=== PATIENT | male | born 1990 | race American Indian/Alaskan Native ===

== ENCOUNTER 2018-03-26 19:20 | Emergency (ER) | payer MEDICAID ==
[2018-03-26] MEDS ORDERED: Sodium Chloride 0.9% 10 ML Syringe FLUSH PRN (19:25)
[2018-03-26] MEDS ORDERED: HYDROmorphone 0.5 MG/0.5 ML SYRINGE IVPUSH ONE ×2 (19:27→21:02)
[2018-03-26] MEDS ORDERED: Lactated Ringers 1,000 ML IV SCH (19:30)
[2018-03-26] MEDS ORDERED: Diphtheria,Pertussis(Acell),Tetanus Vaccine 0.5 ML SDV IM ONE (19:36)
--- NOTE | 2018-03-26 19:37 | EDM.PDOC ---
ED HPI GENERAL MEDICAL PROBLEM - General Chief Complaint: Upper Extremity Injury/Pain Stated Complaint: [facility] Time Seen by Provider: 03/26/18 19:25 Source of Information: Reports: Patient, EMS History Limitations: Reports: No Limitations - History of Present Illness INITIAL COMMENTS - FREE TEXT/NARRATIVE: The patient was brought in by [facility]. The patient was working with a horse tonight. The horse was tied down and he went to grab the horses head and when he did that the horse reached over and bit off his right 5th finger. The finger was brought in by EMS. He is left handed. He is not sure if his tetanus is up to date. He had surgery on his knee this past year at [facility]. He has no other injuries. Onset: Sudden Duration: Hour(s): Location: Reports: Upper Extremity, Right (5th finger) Quality: Reports: Sharp Severity: Severe Improves with: Reports: Immobilization Worsens with: Reports: Movement Associated Symptoms: Reports: No Other Symptoms Right Hand Pain Score (Numeric/FACES): 10 - Related Data Allergies Allergy/AdvReac Type Severity Reaction Status Date / Time No Known Allergies Allergy Verified 03/26/18 19:25 Home Meds: Home Meds . [No Known Home Meds] 03/26/18 [History] Review of Systems - Review of Systems Review Of Systems: See Below Constitutional: Reports: No Symptoms Eyes: Reports: No Symptoms Ears: Reports: No Symptoms Nose: Reports: No Symptoms Mouth/Throat: Reports: No Symptoms Respiratory: Reports: No Symptoms Cardiovascular: Reports: No Symptoms GI/Abdominal: Reports: No Symptoms Genitourinary: Reports: No Symptoms Musculoskeletal: Reports: Other (Right 5th finger amputation) ED EXAM, GENERAL - Physical Exam Exam: See Below Exam Limited By: No Limitations General Appearance: Alert, No Apparent Distress Ears: Normal External Exam Nose: Normal Inspection Head: Atraumatic, Normocephalic Neck: Normal Inspection Respiratory/Chest: No Respiratory Distress, Lungs Clear, Normal Breath Sounds Cardiovascular: Regular Rate, Rhythm, No Edema, No Murmur GI/Abdominal: Soft, Non-Tender, No Organomegaly, No Mass Extremities: Other (Amputation of the right 5th finger at the MCP joint) Neurological: Alert, Oriented, No Motor/Sensory Deficits Course - Vital Signs Last Recorded V/S: Last Vital Signs Temp 98.2 F 03/26/18 19:25 Pulse 90 03/26/18 19:25 Resp 16 03/26/18 19:25 BP 186/113 H 03/26/18 19:25 Pulse Ox 100 03/26/18 19:25 - Orders/Labs/Meds Orders: Active Orders 24 hr Category Date Time Status Cardiac Monitoring [RC] . DIRECTED Care 03/26/18 19:33 Active Peripheral IV Care [RC] . DIRECTED Care 03/26/18 19:27 Active Vaccines to be Administered [RC] PER UNIT ROUTINE Care 03/26/18 19:36 Active Hand Comp Min 3V Rt [CR] Stat Exams 03/26/18 19:28 Ordered CBC WITH AUTO DIFF [HEME] Stat Lab 03/26/18 19:33 Ordered COMPREHENSIVE METABOLIC PN,CMP [CHEM] Stat Lab 03/26/18 19:33 Ordered DRUG SCREEN, URINE [URCHEM] Stat Lab 03/26/18 19:33 Ordered ETHANOL BLOOD MEDICAL [CHEM] Stat Lab 03/26/18 19:33 Ordered Lactated Ringers [Ringers, Lactated] 1,000 ml Med 03/26/18 19:30 Active IV ASDIRECTED Sodium Chloride 0.9% [Saline Flush] Med 03/26/18 19:25 Active 10 ml FLUSH ASDIRECTED PRN ceFAZolin [Ancef] 2,000 mg Med 03/26/18 19:27 Active Sodium Chloride 0.9% [Normal Saline] 100 ml IV ONETIME Peripheral IV Insertion Adult [OM.PC] Routine Oth 03/26/18 19:25 Ordered Medication Orders Cefazolin Sodium 2,000 mg/ (Sodium Chloride) 100 mls @ 100 mls/hr IV ONETIME ONE Stop: 03/26/18 20:26 Lactated Ringer's (Ringers, Lactated) 1,000 mls @ 100 mls/hr IV ASDIRECTED MARTHA Sodium Chloride (Saline Flush) 10 ml FLUSH ASDIRECTED PRN PRN Reason: Keep Vein Open Meds: Medications Generic Name Dose Route Start Last Admin Trade Name Freq PRN Reason Stop Dose Admin Cefazolin Sodium 2,000 mg/ 100 mls @ 100 mls/hr 03/26/18 19:27 Sodium Chloride IV 03/26/18 20:26 ONETIME ONE Lactated Ringer's 1,000 mls @ 100 mls/hr 03/26/18 19:30 Ringers, Lactated IV ASDIRECTED MARTHA Sodium Chloride 10 ml 03/26/18 19:25 Saline Flush FLUSH ASDIRECTED PRN Keep Vein Open Discontinued Medications Generic Name Dose Route Start Last Admin Trade Name Freq PRN Reason Stop Dose Admin Diphtheria/Tetanus/Acell Pertussis 0.5 ml 03/26/18 19:36 Adacel IM 03/26/18 19:37 .ONCE ONE Hydromorphone HCl 0.5 mg 03/26/18 19:27 Dilaudid IVPUSH 03/26/18 19:28 ONETIME ONE - Re-Assessments/Exams Free Text/Narrative Re-Assessment/Exam: 03/26/18 19:46 I ordered an IV LR at 100mL/hr, dilaudid 0.5mg IV, tetanus, ancef 2 grams IV, x- ray and labs. I called [facility] because he had his prior surgery done there and they had no one on for hand surgeon. I called Dr Zee and he agreed to the transfer. The x-ray shows a fracture of the the proximal right 5th phalynx. I will send the patient by ambulance. 03/26/18 19:50 The finger is in a plastic bad and placed on ice. 03/26/18 19:50 Departure - Departure Time of Disposition: 19:50 Disposition: DC/Tfer to Acute Hospital 02 Condition: Good Clinical Impression: Amputation of finger of right hand Qualifiers: Encounter type: initial encounter Qualified Code(s): S68.119A - Complete traumatic metacarpophalangeal amputation of unspecified finger, initial encounter - Discharge Information Forms: ED Department Discharge - My Orders Last 24 Hours: My Active Orders 03/26/18 19:25 Sodium Chloride 0.9% [Saline Flush] 10 ml FLUSH ASDIRECTED PRN Peripheral IV Insertion Adult [OM.PC] Routine 03/26/18 19:27 Peripheral IV Care [RC] . DIRECTED ceFAZolin [Ancef] 2,000 mg Sodium Chloride 0.9% [Normal Saline] 100 ml IV ONETIME 03/26/18 19:28 Hand Comp Min 3V Rt [CR] Stat 03/26/18 19:30 Lactated Ringers [Ringers, Lactated] 1,000 ml IV ASDIRECTED 03/26/18 19:33 Cardiac Monitoring [RC] . DIRECTED CBC WITH AUTO DIFF [HEME] Stat COMPREHENSIVE METABOLIC PN,CMP [CHEM] Stat DRUG SCREEN, URINE [URCHEM] Stat ETHANOL BLOOD MEDICAL [CHEM] Stat 03/26/18 19:36 Vaccines to be Administered [RC] PER UNIT ROUTINE - Assessment/Plan Last 24 Hours: My Active Orders 03/26/18 19:25 Sodium Chloride 0.9% [Saline Flush] 10 ml FLUSH ASDIRECTED PRN Peripheral IV Insertion Adult [OM.PC] Routine 03/26/18 19:27 Peripheral IV Care [RC] . DIRECTED ceFAZolin [Ancef] 2,000 mg Sodium Chloride 0.9% [Normal Saline] 100 ml IV ONETIME 03/26/18 19:28 Hand Comp Min 3V Rt [CR] Stat 03/26/18 19:30 Lactated Ringers [Ringers, Lactated] 1,000 ml IV ASDIRECTED 03/26/18 19:33 Cardiac Monitoring [RC] . DIRECTED CBC WITH AUTO DIFF [HEME] Stat COMPREHENSIVE METABOLIC PN,CMP [CHEM] Stat DRUG SCREEN, URINE [URCHEM] Stat ETHANOL BLOOD MEDICAL [CHEM] Stat 03/26/18 19:36 Vaccines to be Administered [RC] PER UNIT ROUTINE
[2018-03-26] MEDS ORDERED: ceFAZolin 2 GM in Premix Bag 1 BAG IV ONE (19:41)
--- NOTE | 2018-03-27 09:18 | CR ---
Right hand: Three views of the right hand were obtained. Amputation noted of the fifth digit at the level of the base of the proximal phalanx. No additional bony abnormality is seen. Impression: 1. Amputation of the fifth digit as noted above. No additional abnormality is appreciated. Diagnostic code #3
== END 2018-03-26 21:35 ==
LOC: JD.ED 19:20
DX: S68.116A Complete traumatic metacarpophalangeal amputation of right little finger, initial encounter (principal); W55.11XA Bitten by horse, initial encounter; Y99.0 Civilian activity done for income or pay
CPT/HCPCS: 36415; 73130; 80053; 85025; 90471; 90715; 96361; 96365; 96375; 96376; 99285; G0480; J0690; J1170; J7050; J7120

== ENCOUNTER 2019-06-02 22:40 | Emergency (ER) | payer MEDICAID ==
[2019-06-02] MEDS ORDERED: Lactated Ringers 1,000 ML IV ONE (22:53)
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
[2019-06-02] MEDS ORDERED: Lactated Ringers 1,000 ML IV SCH (23:00)
[2019-06-03] MEDS ORDERED: fentaNYL 100 MCG/2 ML SDV IVPUSH ONE (01:38)
--- NOTE | 2019-06-03 08:27 | CT ---
CT chest Technique: Multiple axial sections through the chest were obtained. Intravenous contrast was utilized. Reconstructed coronal and sagittal images were obtained. Findings: Air is identified within the brachiocephalic vein compatible with injection which is felt to be incidental. Aorta and pulmonary arteries appear within normal limits. There is some pulsation artifact being noted. No pericardial thickening is seen. No mediastinal hematoma is noted. No axillary adenopathy is seen. Lungs are clear with no acute parenchymal change. No pleural effusions or pneumothorax are seen. No discrete rib fracture is appreciated. Reconstructed sagittal images of the sternum appear intact. Impression: 1. Nothing acute is identified on CT study of the chest. Diagnostic code #1 I agree with preliminary report from [facility], finalized on 06/03/19, 1:[address] abdomen and pelvis Technique: Multiple axial sections were obtained from above the dome of the diaphragm inferiorly through the pubic symphysis. Intravenous contrast was utilized. No oral contrast was given. There is some artifact due to patient's arms not being lifted above the abdomen. Comparison: No prior abdominal imaging. Findings: Liver shows artifact without definite acute abnormality. Spleen appears within normal limits. Adrenal glands appear within normal limits. Small calcified gallstones are seen within the gallbladder. Pancreas appears within normal limits. Kidneys show symmetric contrast enhancement with no hydronephrosis or other abnormality. Aorta shows no aneurysm. No retroperitoneal adenopathy or mesenteric abnormalities are seen. No pelvic mass or adenopathy is seen. No free fluid or inflammatory change is identified. Appendix is seen and is normal in size. Bone window settings were reviewed which show spondylolytic defects at L5-S1 which are felt to be pre-existing. No pelvic fracture or hip fracture is identified. Delayed images show contrast excretion from both kidneys into nondilated ureters with no contrast extravasation. Contrast noted within the bladder on delayed images. Impression: 1. Small calcified gallstones within the gallbladder. 2. 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 3. Nothing acute is identified on CT study of the abdomen and pelvis. Diagnostic code #2 I agree with preliminary report from [facility], finalized on 06/03/19, 1:09 AM Central Time
--- NOTE | 2019-06-03 08:27 | CR ---
Left elbow: Two views of the left elbow were obtained. Comparison: No prior elbow study. IV in place causing some artifact. Soft tissue swelling is noted. No fracture or other bony abnormality is seen. Impression: 1. Soft tissue swelling. No acute bony abnormality is identified on two-view left elbow study. Diagnostic code #2
--- NOTE | 2019-06-03 08:27 | CT ---
Head CT Technique: Multiple axial sections through the brain were obtained. Intravenous contrast was not utilized. Comparison: No prior intracranial imaging is available. Findings: Soft tissue swelling and hematoma is seen within the left posterior frontal, temporal and parietal skull. These radiopacities are projected superficially within the scalp. Ventricles along with basal cisterns and sulci over the convexities appear within normal limits for the patient's age. No abnormal parenchymal densities are seen. No evidence of intracranial hemorrhage. No midline shift or mass effect is seen. Mild areas of mucosal thickening are seen within the right maxillary sinus and within the ethmoid sinuses. No acute calvarial abnormality is seen. Mastoid sinuses are clear. Impression: 1. Scalp injury as noted above. Minimal sinus findings likely pre-existing. 2. No acute intracranial abnormality or skull fracture is seen. Diagnostic code #3 I agree with preliminary report from [facility], finalized on 06/03/19, 12:55 AM Central Time
--- NOTE | 2019-06-03 08:27 | CT ---
CT facial bones Technique: Multiple axial sections through the facial bones were obtained. Reconstructed coronal and sagittal images were obtained. Comparison: No prior study. Findings: Fractures are seen within the nasal bone. Uncertain if these are acute or old. No additional fracture is seen within the facial structures. Right and left globes are symmetric. Mild areas of mucosal thickening seen within the right maxillary and ethmoid sinuses which have the appearance of mild chronic sinusitis. Impression: 1. Nasal bone fractures which are most likely old. Please correlate with patient's symptoms. 2. Minimal sinus findings having the appearance of mild chronic sinusitis. 3. No acute finding is otherwise seen on CT study of the facial bones. Diagnostic code #3 I agree with preliminary report from [facility], finalized on 06/03/19, 1:00 AM Central Time
--- NOTE | 2019-06-03 08:27 | CR ---
Right hand: Two views of the right hand were obtained. Comparison: Prior right hand exam of 03/26/18. 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 Joint spaces are preserved. Cortical thickening seen between the 3rd and 4th proximal metacarpal shafts compatible with old injury. Dystrophic calcification is also noted at the base of the 1st metacarpal also felt compatible with previous injury. No definite acute bony abnormality is appreciated. Impression: 1. Evidence of old injury as noted above. 2. No acute bony abnormality is identified on limited two-view right hand study. Diagnostic code #2
--- NOTE | 2019-06-03 08:27 | CT ---
CT lumbar spine Technique: Multiple axial sections were obtained through the lumbar spine. Reconstructed coronal and sagittal images were also obtained. Findings: Vertebral body heights and disc spaces are maintained. No focal traumatic disc herniation is seen. Spondylolytic defects are noted at L5-S1 which are likely pre-existing. No acute fracture is identified. No abnormal subluxation is seen. No bony central or bony neural foraminal stenosis is seen. Impression: 1. 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 2. No acute abnormality is identified on CT study of the lumbar spine. Diagnostic code #3 I agree with preliminary report from [facility], finalized on 06/03/19, 1:21 AM Central Time
--- NOTE | 2019-06-03 08:27 | CT ---
CT cervical spine Technique: Multiple axial sections were obtained from above C1 inferiorly to the mid T3 level. Reconstructed sagittal and coronal images were reviewed. Comparison: No prior cervical spine imaging. Findings: Vertebral body heights and disc spaces are maintained. Vertebral bodies and posterior arches are intact. No bony central or bony neural foraminal stenosis is seen. No abnormal subluxation is identified on the reconstructed sagittal images. Impression: 1. Nothing acute is seen on CT study of the cervical spine. Diagnostic code #1 I agree with preliminary report from [facility], finalized on 06/03/19, 1:02 AM Central Time
--- NOTE | 2019-06-03 08:27 | CT ---
CT thoracic spine Technique: Multiple axial sections through the thoracic spine were obtained. Reconstructed coronal and sagittal images were obtained. Comparison: No prior thoracic spine imaging is available. Findings: Vertebral body heights and disc spaces are maintained. Vertebral bodies and posterior arches are intact with no fracture being seen. No abnormal subluxation is seen. No bony central or bony neural foraminal stenosis is noted. No paravertebral soft tissue swelling is seen. Minimal scoliosis is noted. Impression: 1. Minimal scoliosis. 2. Nothing acute is appreciated on CT study of the thoracic spine. Diagnostic code #2 I agree with preliminary report from [facility], finalized on 06/03/19, 1:17 AM Central Time
--- NOTE | 2019-06-03 08:27 | CR ---
Right knee: AP and lateral views of the right knee was obtained. Comparison: No prior knee exam. Evidence of previous ACL repair. Screw is noted within the distal medial epicondyle of the femur. This screw shows half of it to be within the soft tissues. Tibial screw is seen which appears within the bone. Minimal joint space narrowing is seen within the medial compartment. Well corticated bony density seen off the anterior tibia which is old. Minimal joint effusion is seen. No acute fracture or other abnormality is seen. Impression: 1. Previous knee surgery. Distal femoral screw show half of it being within the soft tissues. 2. Minimal joint effusion and other incidental findings. 3. No acute bony abnormality identified on two-view right knee exam. Diagnostic code #3
--- NOTE | 2019-06-03 08:27 | CR ---
Right wrist: Two views of the right wrist were obtained which includes the hand. Prior amputation of the 5th finger are again noted. Areas of cortical thickening seen as well as dystrophic calcification within the hand as noted on hand study. Joint spaces within the wrist are preserved. No acute fracture or other bony abnormality is seen. Impression: 1. Findings again noted as described on hand study. 2. Nothing acute seen on two-view right wrist exam. Diagnostic code #2
== END 2019-06-03 02:28 | disposition home or self-care (01) ==
LOC: JD.ED 22:40
DX: S01.81XA Laceration without foreign body of other part of head, initial encounter (principal); S50.312A Abrasion of left elbow, initial encounter; S40.212A Abrasion of left shoulder, initial encounter; S30.811A Abrasion of abdominal wall, initial encounter; F10.129 Alcohol abuse with intoxication, unspecified; Y90.4 Blood alcohol level of 80-99 mg/100 ml; M25.461 Effusion, right knee; V86.99XA Unspecified occupant of other special all-terrain or other off-road motor vehicle injured in nontraffic accident, initial encounter; Z98.890 Other specified postprocedural states
CPT/HCPCS: 36415; 70450; 70486; 71260; 72125; 72128; 72131; 73070; 73100; 73120; 73560; 74177; 80053; 80306; 81001; 83605; 83690; 85007; 85027; 85610; 96361; 96374; 99285; G0480; J3010; J7120